=== PATIENT | female | born 1950 | race Caucasian/White ===

== ENCOUNTER 2017-11-02 07:21 | Day surgery (SDC) | payer MEDICARE, MEDICAID ==
[~2017-11-02] VITALS: Ht 154.9 cm; Wt 59.0 kg
[~2017-11-02 07:21] MED LIST: AMLO5TAB13 PO; BACL10TA PO; BUSP5TAB51 PO; ESCI20TA PO; GABA300C10 PO; HYDR2TAB58 PO; LEVO25TA6 PO; MELO1TAB73 PO; MORP15TA PO; OLAN5TAB30 PO; ONDA4TAB5 PO; OXYB5TAB61 PO; TRAZ-184 PO
[2017-11-02] MEDS ORDERED: LIDOCAINE 2% (LOCAL ANESTH.) PF 5ml SDV ONE (07:29)
[2017-11-02] MEDS ORDERED: IODIXANOL 320MG/ML 100ML BTL IV ONE (07:29)
[2017-11-02] MEDS ORDERED: SODIUM CHL 0.9% 0 ML ONE (08:18)
[2017-11-02] MEDS ORDERED: MIDAZOLAM HCL 1MG/1ML-2 ML VIAL ONE (08:18)
[2017-11-02] MEDS ORDERED: fentaNYL CITRATE 100 MCG/2 ML VL ONE (08:18)
[2017-11-02] MEDS ORDERED: ANGIOMAX 250 MG VIAL IV ONE (08:18)
[2017-11-02] MEDS ORDERED: VERAPAMIL 2.5MG/ML INJ 2ML VIAL IV ONE (08:39)
[2017-11-02] MEDS ORDERED: NITROGLYCERIN 5MG/ML 10ML VIAL IV ONE (08:40)
[2017-11-02] MEDS ORDERED: EPINEPHrine HCL 1 MG/10 ML SYRG ONE (08:50)
[2017-11-02] MEDS ORDERED: ATROPINE SULF 1 MG/10ml SYR ONE (08:50)
[2017-11-02] MEDS ORDERED: LIDOCAINE 2%HCL (LOCAL ANESTH.) INJ 10ml MDV ONE (09:02)
[2017-11-02] MEDS ORDERED: ONDANSETRON HCL 4 MG/2 ML VIAL IV PRN (10:00)
[2017-11-02] MEDS ORDERED: HYDROcodone-ACET 5/325MG TAB PO PRN (10:00)
[2017-11-02] MEDS ORDERED: ACETAMINOPHEN 500 MG TAB PO PRN (10:00)
== END 2017-11-02 15:30 | disposition home or self-care (01) ==
LOC: CATH 07:21
PROVIDERS: ATTEND Internal Medicine
DX: I73.9 Peripheral vascular disease, unspecified (principal); I35.0 Nonrheumatic aortic (valve) stenosis; F41.9 Anxiety disorder, unspecified; R42 Dizziness and giddiness; F17.210 Nicotine dependence, cigarettes, uncomplicated; I10 Essential (primary) hypertension; Z79.82 Long term (current) use of aspirin; Z79.899 Other long term (current) drug therapy; Z88.1 Allergy status to other antibiotic agents; Z85.9 Personal history of malignant neoplasm, unspecified; Z83.3 Family history of diabetes mellitus
CPT/HCPCS: 75716; 93458; A6257; C1769; C1894; J1644; J2001; J2250; J3010; J3490; J7030; Q9967; 93460; 99152; 99153

== ENCOUNTER 2018-09-08 12:42 | Inpatient (IN) | payer MEDICARE, MEDICAID ==
[~2018-09-08] VITALS: Ht 154.9 cm; Wt 63.1 kg
[~2018-09-08 12:42] MED LIST changes: -AMLO5TAB13 PO; +AMLO5TAB15 PO; +ONDA-144 PO; -ONDA4TAB5 PO
[2018-09-08] MEDS ORDERED: SODIUM CHLORIDE 0.9% 1,000 ML IV ONE (12:59)
[2018-09-08 13:26] LABS: Basophils # (auto) 0 uL; Basophils % (auto) 0.3 % (0.0-2.0); Eosinophils # (auto) 0 uL; Hematocrit 40.5 % (36.0-46.0); Hemoglobin 13.5 g/dL (12.2-16.2); Lymphocytes # (auto) 0.5 uL; Lymphocytes % (auto) 4.5 % (10.0-50.0); Mean Corpuscular Hgb Conc. 33.3 g/dL (32.0-36.0); Mean Corpuscular Volume 90.3 fL (80.0-100.0); Monocytes # (auto) 0.5 uL; Monocytes % (auto) 4.5 % (0.0-12.0); Neutrophils # (auto) 10.3 uL; Neutrophils % (auto) 90.7 % (37.0-80.0); Platelet Count (auto) 83 10^3/uL (140-450); Red Blood Cells 4.49 10^6/uL (4.0-5.20); Red Cell Distribution Width 14.7 % (11.8-14.3); White Blood Cell 11.3 10^3/uL (4.4-10.8)
[2018-09-08 13:42] LABS: Albumin 4.1 g/dL (3.4-5.0); Anion Gap 12 (5-15); Blood Urea Nitrogen 29 mg/dL (7-18); Calcium 9.2 mg/dL (8.5-10.1); Carbon Dioxide 26 mmol/L (21-32); Chloride 107 mmol/L (98-107); Glucose 110 mg/dL (74-106); Potassium 3.1 mmol/L (3.5-5.1); Sodium 145 mmol/L (136-145)
[2018-09-08 13:43] LABS: Partial Thromboplastin Time 26.9 sec (23.64-32.05)
[2018-09-08 13:44] LABS: BUN/Creatinine Ratio 30.9; Blood Alcohol < 3.0 mg/dL (0-5); GFR African American 76 mL/min; GFR Non-African American 63 mL/min
[2018-09-08 13:49] LABS: Alanine Aminotransferase 135 U/L (13-56); Alkaline Phosphatase 77 U/L (45-117); Aspartate Aminotransferase 578 U/L (15-37); Bilirubin, Total 0.6 mg/dL (0.2-1.0); Total Protein 7.7 g/dL (6.4-8.2)
[2018-09-08] MEDS ORDERED: POTASSIUM EFFERVESENT TAB 25 MEQ PO ONE (17:15)
[2018-09-08] MEDS ORDERED: ENOXAPARIN SOD 80 MG/0.8ML SYRINGE SC ONE (17:15)
[2018-09-08 18:29] LABS: Urine Bacteria FEW /hpf (None Seen); Urine Blood 3+ /uL (Negative); Urine Mucus FEW (None Seen); Urine Specific Gravity 1.014 (1.001-1.035); Urine WBC 39 /hpf (0 - 5)
[2018-09-08] MEDS ORDERED: MORPHINE SULF INJ 2 MG/ML SYRINGE 1ML IV PRN (19:00)
[2018-09-08] MEDS ORDERED: traMADol HCL 50 MG TAB PO PRN (19:00)
[2018-09-08] MEDS ORDERED: TEMAZEPAM 15 MG CAP PO PRN (19:00)
[2018-09-08] MEDS ORDERED: LEVOFLOXACIN 500MG 100 ML IV ONE (19:00)
[2018-09-08] MEDS ORDERED: LACTULOSE 20Gm/30ML SOLN PO PRN (19:00)
[2018-09-08] MEDS ORDERED: LABETALOL HCL 5 MG/ML ML 20ML VIAL IV PRN (19:00)
[2018-09-08] MEDS ORDERED: NITROGLYCERIN 0.4 MG SL TAB SL PRN (19:00)
[2018-09-08] MEDS: SODIUM CHLORIDE 0.9% 1,000 ML IV SCH (19:51)
[2018-09-08] MEDS: ATORVASTATIN 20 MG TAB PO SCH (22:29)
[2018-09-09 06:33] LABS: Basophils # (auto) 0 uL; Basophils % (auto) 0.2 % (0.0-2.0); Eosinophils # (auto) 0 uL; Eosinophils % (auto) 0.1 % (0.0-7.0); Hematocrit 41.6 % (36.0-46.0); Hemoglobin 14.2 g/dL (12.2-16.2); Lymphocytes # (auto) 0.6 uL; Lymphocytes % (auto) 8.2 % (10.0-50.0); Mean Corpuscular Hgb Conc. 34.2 g/dL (32.0-36.0); Mean Corpuscular Volume 90.7 fL (80.0-100.0); Monocytes # (auto) 0.3 uL; Monocytes % (auto) 3.4 % (0.0-12.0); Neutrophils # (auto) 6.7 uL; Neutrophils % (auto) 88.1 % (37.0-80.0); Nucleated Red Blood Cells % 0.1 %; Red Blood Cells 4.58 10^6/uL (4.0-5.20); Red Cell Distribution Width 14.4 % (11.8-14.3); White Blood Cell 7.6 10^3/uL (4.4-10.8)
[2018-09-09 06:39] LABS: Platelet Count (auto) 67 10^3/uL (140-450)
[2018-09-09 06:47] LABS: Albumin 3.8 g/dL (3.4-5.0); Calcium 8.6 mg/dL (8.5-10.1)
[2018-09-09 06:50] LABS: BUN/Creatinine Ratio 22.8; Bilirubin, Total 0.8 mg/dL (0.2-1.0); Total Protein 7.7 g/dL (6.4-8.2)
[2018-09-09] MEDS: SODIUM CHLORIDE 0.9% 1,000 ML IV SCH ×3 (07:15→21:16)
[2018-09-09] MEDS: PANTOPRAZOLE 40 MG TAB PO SCH (10:00)
[2018-09-09] MEDS: ENOXAPARIN SOD 40 MG/0.4 ML SYRINGE SC SCH (10:00)
[2018-09-09] MEDS: ASPirin 81 mg TAB PO SCH (10:00)
[2018-09-09] MEDS: LEVOFLOXACIN 500MG 100 ML IV SCH (10:22)
[2018-09-09] MEDS ORDERED: SODIUM CHLORIDE 0.9% 2,000 ML IV ONE (13:30)
--- NOTE | 2018-09-09 15:12 | NUR ---
Telemetry admit from ER ANNA BARRAZA admitted to Telemetry unit after SBAR received from Carlo. Spoke with Carlo regarding patient's potassium and d-dimer levels, per MD Carlo is not aware. Patient oriented to Antonette Patterson RN primary RN, unit, room, bed, and unit policies regarding patient care and visiting hours. Patient now on continuous telemetry monitoring, tele box #14 and telemetry reading on arrival to unit is Sinus Rhythm 88. Patient weighed by bed scale and encouraged to call if they need something. All questions and concerns addressed, patient verbalized understanding.
--- NOTE | 2018-09-09 15:15 | NUR ---
SPOKE WITH MD GAVIN. INFORMED MD OF PATIENT'S POTASSIUM AND D-DIMER LEVELS. MD IS AWARE AND ORDERED POTASSIUM TO BE GIVEN, CAROTID US AND BILATERAL LOWER EXTREMITY US. WILL FOLLOW THROUGH WITH ORDERS.
[2018-09-09] MEDS ORDERED: POTASSIUM CHL 20 Meq TABLET PO ONE (15:45)
[2018-09-09 15:56] VITALS: BP 144/75
[2018-09-09] MEDS ORDERED: POTASSIUM EFFERVESENT TAB 25 MEQ PO ONE ×3 (16:00→18:45)
--- NOTE | 2018-09-09 16:30 | NUR ---
VERIFYING SPECIALIST AT BEDSIDE. BILATERAL LOWER EXTREMITY US BEING DONE AT THIS TIME.
[2018-09-09] MEDS: PROMETHAZINE HCL 25 MG/ML 1ML IV PRN ×2 (16:34→21:38)
[2018-09-09 17:00] VITALS: BP 144/75
--- NOTE | 2018-09-09 18:21 | NUR ---
PATIENT HAS HAD 400 ML OF ORANGE EMESIS. PAGED ELECTRODE TURNER AND FINISHER HOSPITALIST. AWAITING CALL BACK
[2018-09-09] MEDS ORDERED: PROMETHAZINE HCL 25 MG/ML 1ML IV ONE (18:45)
--- NOTE | 2018-09-09 18:45 | NUR ---
MD GLYNN CALLED BACK. INFORMED HIM PATIENT HAS HAD 400 ML OF ORANGE EMESIS AFTER PROMETHAZINE WAS GIVEN. MD ORDER K RIDER, POTASSIUM PO, POTASSIUM IV AND NS WITH POTASSIUM TO BE GIVEN. WILL FOLLOW THROUGH WITH ORDERS.
[2018-09-09] MEDS: POTASSIUM CHL 20MEQ/100ML 100 ML IV SCH ×3 (18:53→21:24)
--- NOTE | 2018-09-09 19:18 | NUR ---
CLOSING SHIFT NOTE ENDORSED CARE TO PICTURE HANGER RN DONA. INFORMED PICTURE HANGER RN, FIRST K RIDER BAG IS RUNNING AT THIS TIME WELL PROMETHAZINE. 2 K RIDER BAGS REMAINING AND NS WITH POTASSIUM. PATIENT HAS NO S/S OF DISTRESS/SOB OR PAIN AT THIS TIME.
--- NOTE | 2018-09-09 19:33 | NUR ---
received pt from day rn poc reviewed
[2018-09-09] MEDS: SOD CHL 0.9%/ KCL 40MEQ 1,000 ML IV SCH (21:16)
[2018-09-09] MEDS: ATORVASTATIN 20 MG TAB PO SCH (21:22)
[2018-09-09 22:03] VITALS: BP 149/80
--- NOTE | 2018-09-09 23:38 | NUR ---
incontinent of stool, pt has periods of confusion stated that she is incontinent because of all the meds she takes
--- NOTE | 2018-09-10 00:25 | NUR ---
resting with eyes closed call light within reach bed alarm intact
[2018-09-10] MEDS: SODIUM CHLORIDE 0.9% 1,000 ML IV SCH ×4 (02:50→22:22)
--- NOTE | 2018-09-10 03:55 | NUR ---
pt had 3rd liquid stool within past 12 hours will send specimen for cdiff charge nurse aware
[2018-09-10 04:05] VITALS: BP 160/81
[2018-09-10] MEDS: SOD CHL 0.9%/ KCL 40MEQ 1,000 ML IV SCH ×2 (05:49→14:45)
[2018-09-10 06:18] LABS: Basophils # (auto) 0 uL; Basophils % (auto) 0.2 % (0.0-2.0); Eosinophils # (auto) 0 uL; Hematocrit 41.7 % (36.0-46.0); Hemoglobin 14.4 g/dL (12.2-16.2); Lymphocytes # (auto) 0.5 uL; Lymphocytes % (auto) 4.3 % (10.0-50.0); Mean Corpuscular Hgb Conc. 34.5 g/dL (32.0-36.0); Mean Corpuscular Volume 89.8 fL (80.0-100.0); Monocytes # (auto) 0.5 uL; Monocytes % (auto) 4.2 % (0.0-12.0); Neutrophils # (auto) 10.2 uL; Neutrophils % (auto) 91.3 % (37.0-80.0); Platelet Count (auto) 92 10^3/uL (140-450); Red Blood Cells 4.65 10^6/uL (4.0-5.20); Red Cell Distribution Width 14.3 % (11.8-14.3); White Blood Cell 11.1 10^3/uL (4.4-10.8)
[2018-09-10 06:43] LABS: Potassium 3.3 mmol/L (3.5-5.1)
--- NOTE | 2018-09-10 06:52 | NUR ---
REPORT GIVEN TO AM NURSE POC REVIEWED
[2018-09-10 07:01] LABS: Albumin 3.5 g/dL (3.4-5.0); Bilirubin, Total 0.8 mg/dL (0.2-1.0); Calcium 8.5 mg/dL (8.5-10.1); Total Protein 7.2 g/dL (6.4-8.2)
--- NOTE | 2018-09-10 07:30 | NUR ---
Opening Shift Note RECEIVED REPORT FROM NOC RN. Assumed care of patient, awake and alert. No S/S of distress/SOB or pain. BED IN LOWEST, LOCKED POSITION WITH SIDERAILS UP x2. Instructed on POC and to call for assist PRN, will continue to monitor for changes Q1hr and PRN.
[2018-09-10 08:10] VITALS: BP 157/89
[2018-09-10 09:00] VITALS: BP 157/89
[2018-09-10] MEDS: ASPirin 81 mg TAB PO SCH (09:58)
[2018-09-10] MEDS: ENOXAPARIN SOD 40 MG/0.4 ML SYRINGE SC SCH (09:58)
[2018-09-10] MEDS: LEVOFLOXACIN 500MG 100 ML IV SCH (09:58)
[2018-09-10] MEDS: PANTOPRAZOLE 40 MG TAB PO SCH (09:58)
[2018-09-10 13:00] VITALS: BP 127/97
[2018-09-10 17:00] VITALS: BP 151/85
--- NOTE | 2018-09-10 19:00 | NUR ---
Opening Shift Note Assumed care of patient, awake and alert. No S/S of distress/SOB or pain. Instructed on POC and to call for assist PRN, will continue to monitor for changes Q1hr and PRN.
[2018-09-10 21:00] VITALS: BP 151/86
[2018-09-10] MEDS: ATORVASTATIN 20 MG TAB PO SCH (21:39)
[2018-09-10] MEDS: ACETAMINOPHEN 500 MG TAB PO PRN (23:02)
[2018-09-11] MEDS: SOD CHL 0.9%/ KCL 40MEQ 1,000 ML IV SCH ×3 (00:45→20:49)
[2018-09-11 04:30] VITALS: BP 137/76
[2018-09-11] MEDS: SODIUM CHLORIDE 0.9% 1,000 ML IV SCH ×3 (05:43→18:50)
[2018-09-11 06:58] LABS: Basophils # (auto) 0 uL; Basophils % (auto) 0.1 % (0.0-2.0); Eosinophils # (auto) 0 uL; Hematocrit 44.1 % (36.0-46.0); Mean Corpuscular Hemoglobin 30.2 pg (28.0-32.0); Mean Corpuscular Hgb Conc. 33.9 g/dL (32.0-36.0); Mean Corpuscular Volume 88.8 fL (80.0-100.0); Neutrophils % (auto) 85.9 % (37.0-80.0); Nucleated Red Blood Cells % 0.1 %; Platelet Count (auto) 119 10^3/uL (140-450); Red Blood Cells 4.97 10^6/uL (4.0-5.20); Red Cell Distribution Width 14.4 % (11.8-14.3); White Blood Cell 13.9 10^3/uL (4.4-10.8)
[2018-09-11 07:16] LABS: Albumin 3.3 g/dL (3.4-5.0); Calcium 8.3 mg/dL (8.5-10.1)
[2018-09-11 07:32] LABS: BUN/Creatinine Ratio 33.9; Bilirubin, Total 0.6 mg/dL (0.2-1.0); Total Protein 6.5 g/dL (6.4-8.2)
[2018-09-11 07:34] LABS: Potassium 2.7 mmol/L (3.5-5.1)
--- NOTE | 2018-09-11 07:40 | NUR ---
CRITICAL LAB POTASSIUM 2.7
--- NOTE | 2018-09-11 07:45 | NUR ---
PAGED HOSPITALIST MARY DOWELL.
--- NOTE | 2018-09-11 07:57 | NUR ---
HOSPITALIST DELMER RETURNED PAGE. NEW ORDERS RECEIVED POTASSIUM 40 MEQ IV. POTASSIUM 40 MEQ PO.
[2018-09-11 08:00] VITALS: BP 154/90
[2018-09-11 08:15] VITALS: BP 154/90
[2018-09-11] MEDS ORDERED: POTASSIUM CHL 20 Meq TABLET PO ONE (08:15)
[2018-09-11] MEDS ORDERED: POTASSIUM CHLORIDE 40 MEQ, LIDOCAINE 1% (LOCAL ANESTH.) 4 ML in SODIUM CHL 0.9% 100 ML IV ONE (08:15)
[2018-09-11] MEDS ORDERED: LOPERAMIDE HCL 2 MG CAP PO ONE (08:45)
[2018-09-11] MEDS ORDERED: LOPERAMIDE HCL 2 MG CAP PO PRN (08:45)
[2018-09-11] MEDS: LEVOFLOXACIN 500MG 100 ML IV SCH (09:39)
[2018-09-11] MEDS: ASPirin 81 mg TAB PO SCH (09:39)
[2018-09-11] MEDS: PANTOPRAZOLE 40 MG TAB PO SCH (09:39)
[2018-09-11] MEDS: ENOXAPARIN SOD 40 MG/0.4 ML SYRINGE SC SCH (09:39)
[2018-09-11 12:00] VITALS: BP 148/92
[2018-09-11 17:00] VITALS: BP 157/91
[2018-09-11] MEDS: POTASSIUM CHL 20 Meq TABLET PO SCH (18:12)
[2018-09-11] MEDS: ATORVASTATIN 20 MG TAB PO SCH (21:38)
[2018-09-11 22:33] VITALS: BP 145/89
[2018-09-12] MEDS: SODIUM CHLORIDE 0.9% 1,000 ML IV SCH ×2 (01:28→07:37)
[2018-09-12 05:29] VITALS: BP 160/98
[2018-09-12] MEDS: SOD CHL 0.9%/ KCL 40MEQ 1,000 ML IV SCH ×2 (06:29→17:41)
[2018-09-12 07:19] LABS: Basophils # (auto) 0 uL; Basophils % (auto) 0.2 % (0.0-2.0); Eosinophils # (auto) 0.1 uL; Eosinophils % (auto) 0.5 % (0.0-7.0); Hematocrit 42.9 % (36.0-46.0); Hemoglobin 14.6 g/dL (12.2-16.2); Lymphocytes # (auto) 1.2 uL; Lymphocytes % (auto) 10.4 % (10.0-50.0); Mean Corpuscular Hemoglobin 30.7 pg (28.0-32.0); Mean Corpuscular Volume 90.4 fL (80.0-100.0); Monocytes # (auto) 0.8 uL; Monocytes % (auto) 7.4 % (0.0-12.0); Neutrophils # (auto) 9.2 uL; Neutrophils % (auto) 81.5 % (37.0-80.0); Platelet Count (auto) 105 10^3/uL (140-450); Red Blood Cells 4.75 10^6/uL (4.0-5.20); Red Cell Distribution Width 14.4 % (11.8-14.3); White Blood Cell 11.3 10^3/uL (4.4-10.8)
[2018-09-12 07:20] LABS: Potassium 3.8 mmol/L (3.5-5.1)
--- NOTE | 2018-09-12 07:35 | NUR ---
PATIENT ROUNDS/ISOLATION RECEIVED CALL FROM MICRO, PATIENT POSITIVE FOR C. DIFF. SHROUD LINE TIER AWARE, WILL URSULA SANTORO. PATIENT MOVED FROM ROOM 246A TO 237. PATIENT IN BED, NO DISTRESS NOTED, BED IN LOWEST POSITION, SIDE RAILS UP X2 CALL LIGHT WITHIN REACH. WILL CONTINUE TO MONITOR AND INITIATE PLAN OF CARE.
[2018-09-12 07:38] LABS: Albumin 3.4 g/dL (3.4-5.0); BUN/Creatinine Ratio 23.5; Bilirubin, Total 0.9 mg/dL (0.2-1.0); Calcium 8.5 mg/dL (8.5-10.1); Total Protein 6.7 g/dL (6.4-8.2)
--- NOTE | 2018-09-12 08:18 | NUR ---
MD UPDATE CALLED AND INFORMED DR GAVIN ON POSITIVE C-DIFF AND ROOM CHANGE.
[2018-09-12] MEDS ORDERED: VANCOMYCIN HCL 500MG/5ML ORAL SOL GT ONE (09:00)
[2018-09-12] MEDS ORDERED: metroNIDAZOLE 500MG/100ML 100 ML IV ONE (09:00)
[2018-09-12 09:16] VITALS: BP 159/90
[2018-09-12] MEDS: PANTOPRAZOLE 40 MG TAB PO SCH (10:00)
--- NOTE | 2018-09-12 10:00 | NUR ---
POC KEISHA Tidwell ASSISTING IN POC.
[2018-09-12] MEDS: ASPirin 81 mg TAB PO SCH (10:14)
[2018-09-12] MEDS: POTASSIUM CHL 20 Meq TABLET PO SCH (10:15)
[2018-09-12] MEDS: ENOXAPARIN SOD 40 MG/0.4 ML SYRINGE SC SCH (10:15)
[2018-09-12] MEDS: LEVOFLOXACIN 500MG 100 ML IV SCH (10:16)
[2018-09-12 10:40] LABS: Hepatitis B Surface Antibody Positive
[2018-09-12 11:17] LABS: Hepatitis A Total Antibody Positive
[2018-09-12] MEDS: VANCOMYCIN HCL 500MG/5ML ORAL SOL GT SCH ×3 (11:47→21:57)
[2018-09-12 13:01] VITALS: BP 150/94
[2018-09-12] MEDS: metroNIDAZOLE 500MG/100ML 100 ML IV SCH ×2 (14:14→21:58)
[2018-09-12 17:08] VITALS: BP 140/93
[2018-09-12 17:15] LABS: Hepatitis B Core Total AB Positive; Hepatitis B Surface Antigen Negative (Negative)
[2018-09-12 17:16] LABS: Hepatitis C Antibody Positive (Negative)
--- NOTE | 2018-09-12 18:51 | NUR ---
picture on dried skin tear on right elbow taken. psyche consult order called in, spoke to Law. Tele psyche monitor in pt room.
--- NOTE | 2018-09-12 19:45 | NUR ---
TELE PSYCHE: PSYCHIATRIST MD CALLED AND INQUIRED RE; PT'S STATUS AND REASON FOR CONSULT.PERTINENT INFO WAS GIVEN, PER MD WILL CALL PT IN THE ROOM. TELE PSYCHE MACHINE IS AVAILABLE TO BE USED IN THE ROOM.
--- NOTE | 2018-09-12 19:55 | NUR ---
PT SEEN IN BED SPEAKING WITH THE TELE PSYCHE .
[2018-09-12 20:00] VITALS: BP 157/92
--- NOTE | 2018-09-12 20:10 | NUR ---
TELE PSYCHE CALLED AND WAS INSTRUCTED TO GO INSIDE PT'S ROOM. WENT IN TO SEE PT SPEAKING WITH THE PSYCHIATRIST, PER PT DENIES STATING SHE OD WITH MEDICATION. PER , PT DOES NOT MANIFEST DANGER ON HERSELF BUT NOTED TO HAVE RELAPSE MEMORIES. UNABLE TO REMEMBER 'S NATURE OF BUT REMEMBERS OF HIM PASSING. UNABLE TO REMEMBER ABOUT HER CAREGIVER. INFORM MD WILL NOTIFY ATTENDING PHYSICIAN RE: THIS INFORMATION.
[2018-09-12 21:46] VITALS: BP 157/92
[2018-09-12] MEDS: METOPROLOL TARTRATE 25 MG TAB PO SCH (21:58)
[2018-09-12] MEDS: ATORVASTATIN 20 MG TAB PO SCH (21:59)
[2018-09-13] VITALS (7 sets, daily range): BP systolic 148–166; BP diastolic 88–99
[2018-09-13] MEDS: SOD CHL 0.9%/ KCL 40MEQ 1,000 ML IV SCH ×3 (03:47→22:45)
[2018-09-13] MEDS: VANCOMYCIN HCL 500MG/5ML ORAL SOL GT SCH ×4 (05:16→22:53)
[2018-09-13] MEDS: metroNIDAZOLE 500MG/100ML 100 ML IV SCH ×3 (05:16→22:53)
--- NOTE | 2018-09-13 07:45 | NUR ---
Opening Shift Note Assumed care of patient, awake, alert and oriented x4 . Patient is forgetful otherwise oriented. Bed at lowest locked position, bed rails up x2 and call light within reach. No S/S of distress/SOB or pain. Instructed on POC and to call for assistance PRN, will continue to monitor for changes Q1hr and PRN.
--- NOTE | 2018-09-13 10:00 | NUR ---
Patient had a BM. Patient was soiled. Cleansed suraj/buttocks with wet warm wash cloths and gentle soap. Patted dry and applied Zguard to suraj/buttocks area. Suraj/buttocks area is red no c/o pain/tenderness. Complete linen change with help of ROUND UP RING HAND. Will continue to monitor.
[2018-09-13] MEDS: LEVOFLOXACIN 500MG 100 ML IV SCH (12:40)
[2018-09-13] MEDS: METOPROLOL TARTRATE 25 MG TAB PO SCH ×2 (12:40→22:51)
[2018-09-13] MEDS: ASPirin 81 mg TAB PO SCH (12:40)
[2018-09-13] MEDS: POTASSIUM CHL 20 Meq TABLET PO SCH (12:40)
[2018-09-13] MEDS: PANTOPRAZOLE 40 MG TAB PO SCH (12:41)
[2018-09-13] MEDS: ENOXAPARIN SOD 40 MG/0.4 ML SYRINGE SC SCH (12:41)
--- NOTE | 2018-09-13 12:54 | NUR ---
Nutrition Assessment Notes please see attached link for complete assessment Est. Needs BW (66 kg): 7010-3678 kcal (23-25 kcal/kgBW), 66-72 gms pro (1.0-1.1 gms/kgBW). Will continue to monitor pertinent labs and reassess nutrient need prn Addendum: 09/13/18 at [address] Amended: Links added.
--- NOTE | 2018-09-13 16:37 | NUR ---
Per consult received, patient has an order for SNF placement. Faxed referral to the following agencies: [facility], [facility], and [facility]. [facility], and [facility] does not have any isolation beds available at this time. [facility] has agreed to accept patient upon discharge. [facility] notified [facility]. Addendum: 09/13/18 at 1640 by RENEA VALADEZ SS Amended: Links added. Addendum: 09/13/18 at 1641 by RENEA VALADEZ SS Per Lakeshia at [facility], they have agreed to accept the patient.
--- NOTE | 2018-09-13 19:15 | NUR ---
Opening Shift Note Received report from jhony Harris RN. Assumed care of patient, awake and alert, but forgetful and confused at times. No S/S of distress/SOB or pain. Instructed on POC and to call for assist PRN, will continue to monitor for changes Q1hr and PRN. Bed placed in lowest position, bed alarm turned on and call light within reach.
--- NOTE | 2018-09-13 21:15 | NUR ---
ROUNDS Patient was making some gurgling noise, oxygen check is 90% room air, noted with a lot of wheezing and slight crackles. Advise patient to cough up, deep breathe and spit some saliva. Placed patient on 2LNC, saturating at 95 %. RT paged and in the room. Patient feeling better. Position patient in a fowlers, patient states feeling better. Will monitor closely.
--- NOTE | 2018-09-13 21:35 | NUR ---
Dr Gatica , Neurologist, came in the room, and ordered Lasix 20mg IV once for wheezing and slight crackles. Order noted.
--- NOTE | 2018-09-13 21:37 | NUR ---
PAGED TO BEDSIDE FOR ASSESSMENT. RN AT BEDSIDE. PT APPEARS DIAPHORETIC BUT WAS ABLE TO ANSWER QUESTIONS APPROPRIATELY. RN PLACED PT ON 3L NC POX 98% HR 92 RR 18. BS ARE ARE COARSE CRACKLES BILATERALLY. SUGGESTED TO RN THAT PT MAY BENEFIT FROM LASIX. RT TOLD RN THAT IF PT HAS ANY OTHER STATUS CHANGE THAT RT WILL COME REASSESS AT THAT TIME.
[2018-09-13] MEDS ORDERED: FUROSEMIDE 20 MG/2 ML VIAL IV ONE (22:00)
[2018-09-13] MEDS: ATORVASTATIN 20 MG TAB PO SCH (22:52)
[2018-09-13] MEDS: ACETAMINOPHEN 500 MG TAB PO PRN (22:52)
[2018-09-14] MEDS: VANCOMYCIN HCL 500MG/5ML ORAL SOL GT SCH ×3 (05:40→18:00)
[2018-09-14] MEDS: metroNIDAZOLE 500MG/100ML 100 ML IV SCH ×2 (05:41→14:00)
[2018-09-14 05:56] VITALS: BP 134/93
[2018-09-14 08:00] VITALS: BP 140/53
[2018-09-14] MEDS: SOD CHL 0.9%/ KCL 40MEQ 1,000 ML IV SCH (08:45)
[2018-09-14 09:00] VITALS: BP 140/93
[2018-09-14 09:04] LABS: Folate (Folic Acid) 22.16 ng/mL (5.38-24)
[2018-09-14] MEDS ORDERED: busPIRone HCL 10 MG TAB PO SCH (10:00)
[2018-09-14] MEDS ORDERED: CITALOPRAM HYDROBR 20 MG TAB PO SCH (10:00)
[2018-09-14] MEDS ORDERED: MELOXICAM PO SCH (10:00)
--- NOTE | 2018-09-14 10:00 | NUR ---
EEG Spoke to Marion in the laboratory technician, she states that EEG will be done later today by a tech. SANTORO aware
--- NOTE | 2018-09-14 12:07 | NUR ---
Per consult received, patient has an order for SNF placement. Faxed referral, placed a follow up call, and per Lakeshia Luna accepted patient. She will be going to room 53 bed A. Vic Luna will provide transportation and medicinal plant picker is at 4:30pm. Dr. Stanley is the accepting doctor per Lakeshia. Nurse Harris, the attending in-patient nurse was notified. Addendum: 09/14/18 at 1211 by RENEA VALADEZ Amended: Links added.
[2018-09-14] MEDS: LEVOFLOXACIN 500MG 100 ML IV SCH (12:17)
[2018-09-14] MEDS: ASPirin 81 mg TAB PO SCH (12:17)
[2018-09-14] MEDS: POTASSIUM CHL 20 Meq TABLET PO SCH (12:18)
[2018-09-14] MEDS: METOPROLOL TARTRATE 25 MG TAB PO SCH (12:19)
[2018-09-14] MEDS: PANTOPRAZOLE 40 MG TAB PO SCH (12:19)
[2018-09-14] MEDS: ENOXAPARIN SOD 40 MG/0.4 ML SYRINGE SC SCH (12:20)
[2018-09-14 13:00] VITALS: BP 132/89
--- NOTE | 2018-09-14 15:23 | NUR ---
Paged Dr. Gatica regarding order for EEG. Awaiting call back.
--- NOTE | 2018-09-14 15:43 | NUR ---
stress test technician has not done the EEG on patient. Notified Dr. Pang. Addendum: 09/14/18 at 1546 by Ginny Yap RN Received orders to cancel EEG from MD Hossein Pang. Orders read back and verified.
--- NOTE | 2018-09-14 15:55 | NUR ---
CALLED BARNEY HERNANDEZ TO GIVE REPORT ON PATIENT. Addendum: 09/14/18 at 1601 by Ginny Yap RN GAVE REPORT TO DIEGO VALDES.
[2018-09-14 16:03] VITALS: BP 132/89
--- NOTE | 2018-09-14 17:19 | NUR ---
Discharge instructions given as ordered. All questions and concerns addressed. Patient verbalized understanding. Medication reconciliation form completed and copy given to patient. Telemetry unit returned to ICU. Report given to Shantal RN at 15:55. Patient transported by non ambulance transportation in a wheelchair with all personal belongings. No distress noted at time of departure.
--- NOTE | 2018-09-14 17:41 | NUR ---
assessment Patient is a 67 year old female who is alert and oriented. Prior to admission patient lived home alone and function with the help of her caregiver Maisha [phone]. Patients PCP is Dr Johnson. Patient has a fww for home use. I informed patient she has a consult for her living situation and that she fell at home. Patient informed me she did fall at home and she was the one who called 911. Patient also informed me she will return home on discharge with her caregiver. I have offered patient rehab and she refused. Patient informed me she feels safe returning home on discharge. Patient will benefit from [facility] for safety and PT. Patient verbalized understanding and agreed to discharge plan home. Addendum: 09/14/18 at 1746 by Charlotte MANSFIELD Amended: Links added.
--- NOTE | 2018-09-14 17:58 | NUR ---
CALLED PATIENTS SON TO NOTIFY OF TRANSFER TO [facility], NO ANSWER. LEFT MESSAGE. KARTIK MEJIA [phone] Addendum: 09/14/18 at 1800 by Ginny Yap RN *TIME CALLED 1600
[2018-09-14] MEDS ORDERED: OLANZapine 5 MG TAB PO SCH (22:00)
--- NOTE | 2018-09-16 11:41 | NUR ---
BLUE PURSE BELONGING TO PT LOCATED ON [place]. MESSAGE LEFT WITH SON JACKIE AT [phone] TO CALL MEAT STOCKER
--- NOTE | 2018-09-16 12:59 | NUR ---
I REC'D CALL FROM SON JACKIE. HE GAVE ME PERMISSION TO GIVE BELONGINGS TO NIK. HE STATES HE NEVER WAS NOTIFIED OF HER DISCHARGE TO Addendum: 09/16/18 at 1351 by Janet Padron RN BARNEY HERNANDEZ BUT HAS SPOKEN TO THEM SINCE DISCHARGE ON 09/14. HE RELATES HX OF HEAVY NARCOTIC USE BY HIS MOTHER CAREGIVER IS NIK AT [phone]. MESSAGE LEFT FOR HER AT 1300
--- NOTE | 2018-09-16 13:10 | NUR ---
MESSAGE LEFT WITH NIK AT [phone] TO CALL COPYRIGHT EXPERT
== END 2018-09-14 17:20 | DRG 871 ==
LOC: ER 12:42 → EDBD 12:42 → TELE 12:43 → TELE-EAST 09-09 15:21
PROVIDERS: ADMIT Internal Medicine; ATTEND Family Medicine
DX: A41.9 Sepsis, unspecified organism (principal); G93.41 Metabolic encephalopathy; I21.A1 Myocardial infarction type 2; N39.0 Urinary tract infection, site not specified; M62.82 Rhabdomyolysis; I50.32 Chronic diastolic (congestive) heart failure; A04.72 Enterocolitis due to Clostridium difficile, not specified as recurrent; B19.10 Unspecified viral hepatitis B without hepatic coma; T50.901A Poisoning by unspecified drugs, medicaments and biological substances, accidental (unintentional), initial encounter; D69.6 Thrombocytopenia, unspecified; I11.0 Hypertensive heart disease with heart failure; I73.9 Peripheral vascular disease, unspecified; I70.90 Unspecified atherosclerosis; J44.9 Chronic obstructive pulmonary disease, unspecified; K21.9 Gastro-esophageal reflux disease without esophagitis; E87.6 Hypokalemia; G62.9 Polyneuropathy, unspecified; B19.20 Unspecified viral hepatitis C without hepatic coma; F41.9 Anxiety disorder, unspecified; E03.9 Hypothyroidism, unspecified; G47.00 Insomnia, unspecified; K74.60 Unspecified cirrhosis of liver; B96.20 Unspecified Escherichia coli [E. coli] as the cause of diseases classified elsewhere; F32.9 Major depressive disorder, single episode, unspecified; Z60.2 Problems related to living alone; Z88.1 Allergy status to other antibiotic agents; Z90.710 Acquired absence of both cervix and uterus; Y92.89 Other specified places as the place of occurrence of the external cause; Z79.899 Other long term (current) drug therapy
CPT/HCPCS: 36415; 70450; 71045; 76705; 80053; 80320; 81001; 82140; 82550; 82607; 82746; 82962; 83605; 83880; 84443; 84484; 85025; 85379; 85610; 85730; 86704; 86706; 86708; 86803; 87040; 87086; 87088; 87186; 87340; 87493; 93005; 93886; 93970; 96361; 96365; 96372; 96375; G0378; J1956; J2001; J3480; J3490

== ENCOUNTER 2019-11-17 15:29 | Inpatient (IN) | payer MEDICARE, MEDICAID ==
[~2019-11-17] VITALS: Ht 167.6 cm; Wt 71.1 kg
[~2019-11-17 15:29] MED LIST changes: +CETI-120 PO; +DILT60TA27 PO; +DIPH2.5T73 PO; +FURO40TA4 PO; +LEV25T PO; +NITR0.4S29 SL; +OLAN1TAB19 PO; +OLAN1TAB7 PO; -OLAN5TAB30 PO; +PARO1TAB33 PO; +POTA10TA51 PO; +TEMA15CA91 PO; +TRAM50TA2 PO
[2019-11-17] MEDS ORDERED: SODIUM CHLORIDE 0.9% 500 ML IVB ONE (15:45)
[2019-11-17 17:12] LABS: Basophils # (auto) 0 10 ^3/uL (0-0.2); Basophils % (auto) 0.1 % (0.0-2.0); Eosinophils # (auto) 0 10 ^3/uL (0-0.8); Eosinophils % (auto) 0.4 % (0.0-7.0); Hematocrit 37.3 % (36.0-46.0); Hemoglobin 12.4 g/dL (12.2-16.2); Lymphocytes # (auto) 0.8 10 ^3/uL (0.4-5.4); Lymphocytes % (auto) 13.7 % (10.0-50.0); Mean Corpuscular Hgb Conc. 33.2 g/dL (32.0-36.0); Mean Corpuscular Volume 87.4 fL (80.0-100.0); Monocytes # (auto) 0.6 10 ^3/uL (0-1.3); Monocytes % (auto) 10.1 % (0.0-12.0); Neutrophils # (auto) 4.5 10 ^3/uL (1.6-8.6); Neutrophils % (auto) 75.7 % (37.0-80.0); Platelet Count (auto) 165 10^3/uL (140-450); Red Blood Cells 4.26 10^6/uL (4.0-5.20); Red Cell Distribution Width 15.8 % (11.8-14.3); White Blood Cell 5.9 10^3/uL (4.4-10.8)
[2019-11-17 17:30] LABS: INR 0.99 (0.9-1.15); Partial Thromboplastin Time 24.7 sec (23.0-31.2)
[2019-11-17 17:37] LABS: Albumin 3.3 g/dL (3.4-5.0); Anion Gap 8 (5-15); Blood Urea Nitrogen 8 mg/dL (7-18); Calcium 8.7 mg/dL (8.5-10.1); Carbon Dioxide 28 mmol/L (21-32); Chloride 108 mmol/L (98-107); Glucose 96 mg/dL (74-106); Magnesium 2.5 mg/dL (1.6-2.6); Sodium 144 mmol/L (136-145)
[2019-11-17 17:41] LABS: Alanine Aminotransferase 29 U/L (13-56); Alkaline Phosphatase 95 U/L (45-117); Aspartate Aminotransferase 19 U/L (15-37); BUN/Creatinine Ratio 12.1; Bilirubin, Total 0.4 mg/dL (0.2-1.0); GFR African American 114 mL/min; GFR Non-African American 94 mL/min; Total Protein 6.7 g/dL (6.4-8.2)
[2019-11-17 17:54] LABS: Potassium 2.5 mmol/L (3.5-5.1)
[2019-11-17] MEDS ORDERED: LORazepam 2MG/ML-1ML VIAL IV ONE (18:00)
[2019-11-17] MEDS: POTASSIUM CHL 20MEQ/100ML 100 ML IV SCH ×3 (18:15→20:50)
[2019-11-17] MEDS ORDERED: NITROGLYCERIN 0.4 MG SL TAB SL PRN (18:30)
[2019-11-17] MEDS ORDERED: ALBUTEROL SULF 2.5 MG/0.5ML(0.5%) NEB SOLN NEB PRN (18:30)
[2019-11-17] MEDS ORDERED: hydrALAZINE HCL 20 MG/ML VL IV PRN (18:30)
[2019-11-17] MEDS ORDERED: MORPHINE SULF INJ 2 MG/ML SYRINGE 1ML IV PRN (18:30)
[2019-11-17] MEDS: D5W/SOD CHLO 0.9% 1,000 ML IV SCH (19:27)
--- NOTE | 2019-11-17 19:40 | NUR ---
Telemetry admit from ER MADIANNA admitted to Telemetry arrived at 1940 via bed. Patient oriented to GERARDO MCCORMICK, RN primary RN, unit, room, bed, and unit policies regarding patient care and visiting hours. Patient responds to name by opening eyes non verbal at this time. Patient now on continuous telemetry monitoring, tele box #53 and telemetry reading on arrival to unit is Afib 66. Patient weighed by bed scale and vitals taken at this time. Safety measures in place bed in lowest position, side rails up x2 and call light with in reach. will continue to monitor for changes Q1hr and PRN.
--- NOTE | 2019-11-17 21:20 | NUR ---
PATIENT ALTERED. UNABLE TO CONFIRM LIST OF MEDICATIONS OR PHARMACY. INFORMATION PULLED FROM CHART AND UPDATED. MOVEMAN RN INFORMED.
[2019-11-17 22:00] VITALS: BP 130/83
[2019-11-17] MEDS: BUDESONIDE (INHALATION) 0.5 MG/2 ML NEB NEB SCH (22:20)
[2019-11-17 22:53] VITALS: BP 106/77
--- NOTE | 2019-11-17 23:45 | NUR ---
Transferred patient to central via bed. Gave report and endorsed care to RN on central.
--- NOTE | 2019-11-17 23:50 | NUR ---
Transfer from [place] Assumed care of patient, patient was coming in and out of consciousness, non verbal, moving around in bed, trying to get out of bed. No S/S of distress/SOB or pain. Instructed on POC and to call for assist PRN, will continue to monitor for changes sitter in the room for safety.
[2019-11-18] MEDS: LORazepam 2MG/ML-1ML VIAL IV PRN ×3 (00:53→10:49)
[2019-11-18 05:00] VITALS: BP 122/92
[2019-11-18 05:59] LABS: Basophils # (auto) 0.1 10 ^3/uL (0-0.2); Basophils % (auto) 1.1 % (0.0-2.0); Eosinophils # (auto) 0.1 10 ^3/uL (0-0.8); Eosinophils % (auto) 1.8 % (0.0-7.0); Hematocrit 41.8 % (36.0-46.0); Hemoglobin 13.9 g/dL (12.2-16.2); Lymphocytes # (auto) 1.3 10 ^3/uL (0.4-5.4); Lymphocytes % (auto) 26.7 % (10.0-50.0); Mean Corpuscular Hemoglobin 28.9 pg (28.0-32.0); Mean Corpuscular Hgb Conc. 33.3 g/dL (32.0-36.0); Monocytes # (auto) 0.6 10 ^3/uL (0-1.3); Monocytes % (auto) 12.8 % (0.0-12.0); Neutrophils # (auto) 2.9 10 ^3/uL (1.6-8.6); Neutrophils % (auto) 57.6 % (37.0-80.0); Nucleated Red Blood Cells % 0.1 %; Platelet Count (auto) 171 10^3/uL (140-450); Red Blood Cells 4.81 10^6/uL (4.0-5.20); Red Cell Distribution Width 15.9 % (11.8-14.3)
[2019-11-18 06:19] LABS: Albumin 3.4 g/dL (3.4-5.0); BUN/Creatinine Ratio 6.5; Calcium 8.8 mg/dL (8.5-10.1)
[2019-11-18 06:22] LABS: Bilirubin, Total 0.4 mg/dL (0.2-1.0); Phosphorus 2.9 mg/dL (2.5-4.90); Total Protein 7.3 g/dL (6.4-8.2)
[2019-11-18] MEDS: BUDESONIDE (INHALATION) 0.5 MG/2 ML NEB NEB SCH ×2 (06:37→22:03)
--- NOTE | 2019-11-18 07:10 | NUR ---
OPENING SHIFT NOTES Assumed care of patient from maintenance technician 3rd shift RN. Patient is alert and oriented x1, she was reoriented to place time and situation. Sitter at bedside. Patient has echolalia, repeating the phrase "please help me." Patient is unable to answer questions. She was updated on the plan of care and was unable to verbalize understanding. Bed is locked, in the lowest position, side rails up x2 and call light is in reach. She was encouraged to call for assistance as needed.
--- NOTE | 2019-11-18 07:39 | NUR ---
HOSPITALIST PAGED for potassium results 3.0 after 40 meq K rider. New order received for 40 meq K rider, order read back and verified.
[2019-11-18] MEDS: D5W/SOD CHLO 0.9% 1,000 ML IV SCH (07:50)
[2019-11-18] MEDS: POTASSIUM CHL 20MEQ/100ML 100 ML IV SCH ×2 (08:19→11:16)
[2019-11-18 09:00] VITALS: BP 135/55
--- NOTE | 2019-11-18 09:39 | NUR ---
PAGED HOSPITALIST Patient appears anxious, repeating "help me", legs and arms are restless. Awaiting call back.
[2019-11-18] MEDS: PANTOPRAZOLE 40 MG/10 ML VIAL INJ IV SCH (09:55)
--- NOTE | 2019-11-18 09:55 | NUR ---
PATIENT REFUSING LOVENOX educated the patient on the medication, patient refused. Will try to administer again later
[2019-11-18] MEDS: ENOXAPARIN SOD 40 MG/0.4 ML SYRINGE SC SCH (10:00)
[2019-11-18] MEDS ORDERED: POTASSIUM CHL 20MEQ/100ML 100 ML IV ONE ×2 (10:15→12:30)
[2019-11-18] MEDS ORDERED: MEROPENEM 1GM IVPB 100 ML IV SCH (10:30)
--- NOTE | 2019-11-18 10:40 | NUR ---
CALL FROM SUKHI UPDATED ON THE PATIENT STATUS. NEW ORDER RECEIVED FOR ATIVAN 0.5MG IV Q12h PRN ANXIETY, ORDER READ BACK AND VERIFIED.
--- NOTE | 2019-11-18 11:29 | NUR ---
HOSPITALIST AT BEDSIDE Luke at bedside. Updated on the patient status. New order for clear liquid diet ordered, will call family for information on patient's baseline.
--- NOTE | 2019-11-18 12:16 | NUR ---
MESSAGE LEFT FOR SON regarding patient baseline, awaiting call back.
--- NOTE | 2019-11-18 12:18 | NUR ---
MESSAGE LEFT FOR CAREGIVER regarding patient baseline and history. Awaiting call back.
[2019-11-18 13:00] VITALS: BP 129/75
[2019-11-18] MEDS: cefTRIAXone 1GM/50ML D5W 50 ML IV SCH (13:33)
--- NOTE | 2019-11-18 15:05 | NUR ---
ELEAZAR AT BEDSIDE updated on the patient status, plan of care discussed with the patient but she was unable to verbalize understanding. No new orders received at this time.
[2019-11-18] MEDS ORDERED: SPIRONOLACTONE 25 MG TAB PO ONE (16:45)
--- NOTE | 2019-11-18 16:51 | NUR ---
MESSAGE LEFT FOR SON called for med, rec and patient's baseline neuro status. Awaiting call back.
[2019-11-18 17:00] VITALS: BP 146/84
--- NOTE | 2019-11-18 17:20 | NUR ---
MARIE AT BEDSIDE Updated on the patient status, plan of care was discussed with the patient. No new orders received.
--- NOTE | 2019-11-18 17:40 | NUR ---
PATIENT'S SON SHIRLEY CALLED Per patient's son, patient abuses pain medications and she continually is discharged from the hospital and abuses medication and ends up back in the hospital, states that the "caregiver finds her often passed out with the medications on her lap". He is unaware of the exact medications that she is on. He states that her baseline is "alert and oriented x4, patient can walk with a walker". He was updated on the plan of care and verbalized understanding. All questions answered. Addendum: 11/18/19 at 1824 by ERICA SCHUSTER RN per patient's son patient lives at [place] alone and has a caregiver Maisha. Will attempt to recall the caregiver for med rec.
--- NOTE | 2019-11-18 19:03 | NUR ---
URINE SENT TO LAB
--- NOTE | 2019-11-18 19:20 | NUR ---
OPENING SHIFT NOTE Assumed care of patient from Marion RN, Patient is alert to self currently on RA with no S/S of distress or SOB or pain noted at this time. Patient is bedrest with bed alarm on and Sitter bedside. POC discussed with patient and all questions answered. Bed in lowest position, locked, side rails up x2. Call light within reach. Will continue to monitor PRN.
[2019-11-18 19:40] LABS: Urine Bacteria FEW /hpf (None Seen); Urine Blood 1+ /uL (Negative); Urine Specific Gravity 1.014 (1.001-1.035); Urine WBC 1441 /hpf (0 - 5); Urine WBC Clumps PRESENT /hpf (None Seen)
[2019-11-18 21:03] VITALS: BP 126/72
[2019-11-19] MEDS: LORazepam 2MG/ML-1ML VIAL IV PRN ×2 (00:04→23:04)
[2019-11-19 05:05] VITALS: BP 136/82
--- NOTE | 2019-11-19 07:02 | NUR ---
CARE ENDORSED TO ERICA VALDES
--- NOTE | 2019-11-19 07:04 | NUR ---
OPENING SHIFT NOTE Assumed care of patient from reproductive endocrinologist RN. There is a sitter at bedside. Patient is alert and oriented x3, with periods of confusion. She was oriented to the situation and was updated on the plan of care and verbalized understanding. Bed is locked, in the lowest position, side rails are up x2 and call light is in reach. She was encouraged to call for assistance as needed.
[2019-11-19 08:31] VITALS: BP 124/66
[2019-11-19] MEDS: BUDESONIDE (INHALATION) 0.5 MG/2 ML NEB NEB SCH ×2 (10:25→22:00)
[2019-11-19] MEDS: cefTRIAXone 1GM/50ML D5W 50 ML IV SCH (10:29)
[2019-11-19] MEDS: PANTOPRAZOLE 40 MG/10 ML VIAL INJ IV SCH (10:30)
[2019-11-19] MEDS: ENOXAPARIN SOD 40 MG/0.4 ML SYRINGE SC SCH (10:33)
--- NOTE | 2019-11-19 11:30 | NUR ---
IV insertion IV access obtained, via clean sterile technique by inserting 22 gauge catheter at LEFT WRIST after 2 attempts. IV secured properly. No trauma to site. IV to the left AC and the right forearm removed. Catheters intact and pressure dressings applied. Patient tolerated well.
--- NOTE | 2019-11-19 11:34 | NUR ---
SUKHI AT BEDSIDE Updated on the patient status, Plan of care was discussed with the patient and she verbalized understanding. New orders for mechanical soft diet.
[2019-11-19 11:37] LABS: Calcium 8.4 mg/dL (8.5-10.1); Potassium 3.3 mmol/L (3.5-5.1)
[2019-11-19 11:39] LABS: BUN/Creatinine Ratio 9.4
--- NOTE | 2019-11-19 11:46 | NUR ---
EEG-ELECTROENCEPHALOGRAM COMPLETED AT BEDSIDE @ 10:20. RN AWARE.
--- NOTE | 2019-11-19 11:52 | NUR ---
PRIETO MADE AWARE OF POTASSIUM 3.3 New order for KCl 60mg PO. Order read back and verified.
[2019-11-19] MEDS ORDERED: POTASSIUM CHL 20 Meq TABLET PO ONE (12:00)
[2019-11-19 12:31] VITALS: BP 116/66
--- NOTE | 2019-11-19 12:43 | NUR ---
ELEAZAR AT BEDSIDE updated on the patient status. Per MD she is cleared from cardiology.
--- NOTE | 2019-11-19 16:13 | NUR ---
PATIENT MEDICATIONS AT BEDSIDE TAKEN TO PHARMACY. WILL UPDATE MED REC
--- NOTE | 2019-11-19 16:46 | NUR ---
Mlaloy catheter insertion Patient assessed and determined to be in need of Malloy catheter. Order obtained from MD. Patient educated on catheter and reason for insertion. All questions answered. Malloy catheter 16 gauge Romanian inserted with clean sterile technique. Patient tolerated well.
[2019-11-19 16:51] VITALS: BP 119/79
--- NOTE | 2019-11-19 17:03 | NUR ---
CALL FROM FAMILY Patient's son Fox called. After verification of password he was updated on the patient's condition and the plan of care. All questions answered.
--- NOTE | 2019-11-19 19:20 | NUR ---
OPENING SHIFT NOTE Assumed care of patient from Marion RN, Patient is alert and oriented and currently on RA with no S/S of distress or SOB or pain noted at this time. Patient is bedrest with bed alarm on and Sitter bedside. POC discussed with patient and all questions answered, patient verbalized understanding. Bed in lowest position, locked, side rails up x2. Call light within reach. Will continue to monitor PRN.
[2019-11-19 22:00] VITALS: BP 109/64
--- NOTE | 2019-11-19 22:17 | NUR ---
AT BEDSIDE FOR MED WHIT TX. PT REFUSING TO TAKE PULMICORT. PT EXPLAINED SHE HAS NEVER TAKEN THIS MEDICATION EVEN AT HOME AND DOES NOT UNDERSTAND WHY SHE IS ON IT AT HERE. EXPLAINED TO PT, PT STILL REFUSING TO TAKE. PT WOULD LIKE ME TO COMPLETELY STOP THIS ORDER UNTIL EXPLAINED BY MDS RECOMMENDATION. CUFF SETTER LOCKSTITCH AT BEDSIDE WILL NOTIFY RN OF PTS REFUSAL.
[2019-11-20 04:58] VITALS: BP 147/74
--- NOTE | 2019-11-20 07:02 | NUR ---
CARE ENDORSED TO ERICA VALDES
--- NOTE | 2019-11-20 07:02 | NUR ---
OPENING SHIFT NOTES Assumed care of patient from assistant shift supervisor RN. Sitter is at bedside. Patient is alert and oriented x4, no signs of distress noted. Patient was updated on the plan of care and verbalized understanding. Patient has a Malloy draining cloudy yellow urine to gravity, tubing free of loops and kinks. Bed is locked in the lowest position, side rails are up x2 and call light is in reach. She was encouraged to call for assistance as needed.
[2019-11-20 08:31] VITALS: BP 127/65
--- NOTE | 2019-11-20 09:12 | NUR ---
PT AT BEDSIDE Patient in chair at bedside, and assisted back to bed by PT.
[2019-11-20] MEDS: ENOXAPARIN SOD 40 MG/0.4 ML SYRINGE SC SCH (09:21)
[2019-11-20] MEDS: cefTRIAXone 1GM/50ML D5W 50 ML IV SCH (09:21)
[2019-11-20] MEDS: PANTOPRAZOLE 40 MG/10 ML VIAL INJ IV SCH (09:21)
--- NOTE | 2019-11-20 10:15 | NUR ---
FYI-patient was previously on service with [facility].
--- NOTE | 2019-11-20 11:50 | NUR ---
SUKHI AT BEDSIDE Updated on the patient status and the plan of care. Patient was updated on the plan of care and verbalized understanding. New orders for UA and Urine cultures.
[2019-11-20] MEDS: LORazepam 2MG/ML-1ML VIAL IV PRN ×2 (12:09→22:07)
--- NOTE | 2019-11-20 12:11 | NUR ---
HEP C ANTIBODIES POSITIVE SUKHI AWARE
--- NOTE | 2019-11-20 12:35 | NUR ---
URINE SENT TO LAB FOR UA AND CULTURE
--- NOTE | 2019-11-20 12:43 | NUR ---
UROLOGY AT BEDSIDE Barb at bedside. Per ROLLER TURNER patient would need to have cystoscopy as outpatient, patient is cleared for DC.
[2019-11-20 13:00] VITALS: BP 126/76
[2019-11-20 13:17] LABS: Urine Bacteria NONE SEEN /hpf (None Seen); Urine Blood 1+ /uL (Negative); Urine Specific Gravity 1.009 (1.001-1.035); Urine WBC 527 /hpf (0 - 5); Urine WBC Clumps PRESENT /hpf (None Seen)
--- NOTE | 2019-11-20 14:44 | NUR ---
CALL FROM FAMILY Patient's son Fox called. After verification of password he was updated on the patient status and the plan of care and verbalized understanding. All questions answered. Call was then transferred to the patient's room.
[2019-11-20] MEDS ORDERED: PARoxetine 20 MG TAB PO ONE (15:15)
[2019-11-20 16:46] VITALS: BP 132/74
[2019-11-20] MEDS: SUCRALFATE 1 GM/10 ML ORAL SUSP PO SCH ×2 (17:29→21:00)
[2019-11-20] MEDS: OLANZapine 5 MG TAB PO SCH (17:30)
--- NOTE | 2019-11-20 19:20 | NUR ---
OPENING SHIFT NOTE Assumed care of patient from Marion RN, Patient is alert and oriented and currently on RA with no S/S of distress or SOB or pain noted at this time. Patient is bedrest with bed alarm on. POC discussed with patient and all questions answered, patient verbalized understanding. Bed in lowest position, locked, side rails up x2. Call light within reach. Will continue to monitor PRN.
[2019-11-20] MEDS: traZODone HCL 50 MG TAB PO SCH (21:00)
[2019-11-20] MEDS: PANTOPRAZOLE 40 MG TAB PO SCH (21:00)
[2019-11-20 22:00] VITALS: BP 125/80
--- NOTE | 2019-11-20 22:15 | NUR ---
IV REMOVAL Iv site was infiltrated. IV DC'd with clean sterile technique, catheter fully intact. Pressure dressing applied to site. Patient tolerated well. Will obtain a new IV site.
--- NOTE | 2019-11-20 22:30 | NUR ---
IV INSERTION IV access obtained, via clean sterile technique by inserting 22 gauge catheter to the left hand after 1 attempt. IV secured properly. No trauma to site. Patient tolerated well. Saline locked.
[2019-11-21 05:00] VITALS: BP 108/70
[2019-11-21] MEDS: SUCRALFATE 1 GM/10 ML ORAL SUSP PO SCH ×4 (06:36→21:51)
--- NOTE | 2019-11-21 07:29 | NUR ---
CARE ENDORSED TO RAMILA VALDES
[2019-11-21] MEDS ORDERED: LORazepam 2MG/ML-1ML VIAL IV PRN (08:45)
[2019-11-21 08:48] VITALS: BP 129/77
--- NOTE | 2019-11-21 09:03 | NUR ---
PATIENT TAKEN TO MRI IV PATENT AND ASYMPTOMATIC, PATIENT MEDICATED WITH ATIVAN.
[2019-11-21] MEDS: OLANZapine 5 MG TAB PO SCH (11:47)
[2019-11-21] MEDS: ENOXAPARIN SOD 40 MG/0.4 ML SYRINGE SC SCH (11:48)
[2019-11-21] MEDS: cefTRIAXone 1GM/50ML D5W 50 ML IV SCH (11:48)
[2019-11-21] MEDS: PARoxetine 20 MG TAB PO SCH (11:49)
[2019-11-21] MEDS: PANTOPRAZOLE 40 MG TAB PO SCH ×2 (11:49→21:50)
--- NOTE | 2019-11-21 11:51 | NUR ---
IV INSERTION IV INSERTED AFTER ONE ATTEMPT 22G PATIENT TOLERATED WELL.
--- NOTE | 2019-11-21 12:00 | NUR ---
Pt refused PT tx today w/ c/o fatigue & nausea. Addendum: 11/21/19 at 1202 by Navin Reese TOWEL INSPECTOR Amended: Links added.
--- NOTE | 2019-11-21 12:42 | NUR ---
Nutrition Assessment Notes Please refer to link for full assessment notes. Est Energy needs: 8880-2565 kcals (20-23 kcal/kgBW) Est Protein needs: 66-73 gms/day (1.0-1.1 gm/kgBW) Will continue to monitor and reassess prn. Addendum: 11/21/19 at [address] Amended: Links added.
[2019-11-21 12:49] VITALS: BP 129/74
[2019-11-21] MEDS ORDERED: SIMETHICONE 40 MG/0.6 ML ORAL DROP PO PRN (13:30)
--- NOTE | 2019-11-21 13:50 | NUR ---
ALLERGY BAND PROVIDED FOR PATIENT AND APPLIED TO RIGHT WRIST
--- NOTE | 2019-11-21 14:18 | NUR ---
[facility] OF THE URINE COAL WASHER TENDER INFORMED OF PATIENTS MICRO LAB RESULT
--- NOTE | 2019-11-21 15:24 | NUR ---
MYLICON DROPS PROVIDED FROM PHARMACY. DOSE ORDERED PRESCRIBED GIVEN TO PATIENT AND PLACED IN PATIENT CASSET
[2019-11-21 16:34] VITALS: BP 140/83
--- NOTE | 2019-11-21 19:35 | NUR ---
Opening Shift Note Assumed care of patient, awake and alert. No S/S of distress/SOB or pain. Instructed on POC and to call for assist PRN, will continue to monitor for changes Q1hr and PRN. bed in low position and call light within reach. fall precautions in place
[2019-11-21] MEDS: traZODone HCL 50 MG TAB PO SCH (21:50)
[2019-11-21] MEDS: LORazepam 2MG/ML-1ML VIAL IV PRN (21:51)
[2019-11-21 22:00] VITALS: BP 111/62
--- NOTE | 2019-11-22 | NUR ---
[facility] OF THE URINE MEDICAL OFFICE ASSISTANT INSTRUCTOR INFORMED OF PATIENTS RESULTS
[2019-11-22] MEDS: SUCRALFATE 1 GM/10 ML ORAL SUSP PO SCH ×4 (06:29→23:07)
--- NOTE | 2019-11-22 07:20 | NUR ---
report given to dayshift rn patient is awake and alert.patient denies sob distress or pain.
--- NOTE | 2019-11-22 08:00 | NUR ---
Opening Shift Note Assumed care of patient, awake, alert and oriented X4. No S/S of distress/SOB or pain. Tele# 39, sinus rhythm @ 67 bpm. IV to left wrist, 22 gauge, patent and saline locked. Instructed on POC and to call for assist PRN, verbalized understanding. Bed locked, in lowest position, call light within reach, will continue to monitor for changes Q1hr and PRN.
[2019-11-22 08:40] VITALS: BP 126/79
[2019-11-22] MEDS: cefTRIAXone 1GM/50ML D5W 50 ML IV SCH (09:17)
[2019-11-22] MEDS: LORazepam 2MG/ML-1ML VIAL IV PRN (09:25)
[2019-11-22] MEDS: ENOXAPARIN SOD 40 MG/0.4 ML SYRINGE SC SCH (09:26)
[2019-11-22] MEDS: OLANZapine 5 MG TAB PO SCH (09:26)
[2019-11-22] MEDS: PANTOPRAZOLE 40 MG TAB PO SCH ×2 (09:26→23:07)
[2019-11-22] MEDS: PARoxetine 20 MG TAB PO SCH (09:26)
[2019-11-22 09:58] LABS: BUN/Creatinine Ratio 15.2; Calcium 8.5 mg/dL (8.5-10.1); Potassium 4.1 mmol/L (3.5-5.1)
--- NOTE | 2019-11-22 10:56 | NUR ---
ROUNDS Dr Butler at bedside for rounds, new orders received and followed through. Patient updated on plan of care, verbalized understanding.
--- NOTE | 2019-11-22 10:59 | NUR ---
Pt refused PT tx due to significant nausea. RN informed. Addendum: 11/22/19 at 1101 by Navin Reese OUTSOLE CASER Amended: Links added.
[2019-11-22] MEDS: ONDANSETRON HCL 4 MG/2 ML VIAL IV PRN (11:58)
[2019-11-22 13:00] VITALS: BP 128/69
--- NOTE | 2019-11-22 14:10 | NUR ---
Pt REFUSED 2ND ATTEMPT TO HAVE HER PARTICIPATE IN THERAPY DESPITE NAUSEA MEDICATION HAVING BEEN GIVEN TO HER BY HER RN 30 MINUTES PRIOR. Addendum: 11/22/19 at 1414 by Navin Reese FORECLOSURE HOME INSPECTOR Amended: Links added.
[2019-11-22] MEDS ORDERED: LINEZOLID 600MG TABLET PO ONE (15:45)
[2019-11-22] MEDS ORDERED: VANCOMYCIN PER PHARMACY 0 MG IV SCH (16:00)
--- NOTE | 2019-11-22 16:03 | NUR ---
assessment re: ss consult dc planning Patient is a 69 year old female who is alert and oriented. Patients cognitive abilities are intact. Prior to admission patient lived home alone and functioned with assistance of her daily caregiver. Per patient she will return home to her prior living arrangements post discharge and family will transport her home. Patient has a fww, wheelchair, bedside commode and a shower chair for home use. Patients PCP is Dr Mary Lopez. Patient informed me she has a daily caregiver for 3 hours per day Maisha Friedman. Patient has [facility]. Patient wants to resume with [facility]. Patient will need a resumption order for home health on discharge. Patient has been offered SNF. Patient refuses SNF and prefers to return home on discharge. Patient informed me she has no safety issues regarding returning home on discharge. I informed patient she has a right to speak to a social work case manager regarding all care. I informed patient she has a right to participate in any and all discharge planning. Patient does not have a POA and advanced directive. I have offered patient information on POA and advanced directives. I informed the patient the advantages and benefits of having an Advanced Directive. Patient verbalized understanding and agreed to discharge plan. Addendum: 11/22/19 at 1605 by Charlotte MANSFIELD Amended: Links added.
[2019-11-22 16:51] VITALS: BP 125/77
--- NOTE | 2019-11-22 18:15 | NUR ---
IV removal IV DC'd to the left wrist due to swelling and tenderness, with sterile technique, catheter fully intact. Pressure dressing applied to site. Patient tolerated procedure well. IV insertion IV access obtained, via clean sterile technique by inserting 20 gauge catheter at right forearm after 2 attempt(s). IV secured properly. No trauma to site. Patient tolerated procedure well.
[2019-11-22] MEDS: VANCOMYCIN 1GM/250ML 250 ML IV SCH (18:20)
--- NOTE | 2019-11-22 18:20 | NUR ---
Malloy catheter dc'd Order to discontinue Malloy catheter. Malloy dc'd with clean technique following deflation of balloon. Patient tolerated well with no complaints of pain. Continue care.
--- NOTE | 2019-11-22 19:11 | NUR ---
Care endorsed to Miley VALDES, night nurse.
--- NOTE | 2019-11-22 20:00 | NUR ---
HOSPITALIST PAGED PATIENT REQUESTING ATIVAN, STATING "ITS THE ONLY THING THAT WILL HELP ME SLEEP". WILL AWAIT CALL BACK.
[2019-11-22 22:00] VITALS: BP 119/70
[2019-11-22] MEDS ORDERED: LINEZOLID 600MG TABLET PO SCH (22:00)
--- NOTE | 2019-11-22 22:00 | NUR ---
HOSPITALIST PAGED PATIENT CONTINUES TO REQUEST ATIVAN FOR SLEEP. WILL AWAIT CALLBACK.
[2019-11-22] MEDS: traZODone HCL 50 MG TAB PO SCH (23:07)
--- NOTE | 2019-11-23 04:14 | NUR ---
PATIENT TRANSFERRED TO ROOM 220A. ALL BELONGINGS MOVED WITH PATIENT. Addendum: 11/23/19 at 0417 by Miley Kat RN PATIENT TRANSFERRED TO ROOM 222A, ALL BELONGINGS WITH PATIENT.
[2019-11-23 05:00] VITALS: BP 137/70
[2019-11-23] MEDS: SUCRALFATE 1 GM/10 ML ORAL SUSP PO SCH ×4 (06:56→21:36)
--- NOTE | 2019-11-23 08:00 | NUR ---
Opening Shift Note Assumed care of patient, awake, alert and oriented X4. No S/S of distress/SOB or pain. Tele# 39, sinus rhythm @ 90 bpm. IV to left forearm, 20 gauge, patent and saline locked. Instructed on POC and to call for assist PRN, verbalized understanding. Bed locked, in lowest position, call light within reach, will continue to monitor for changes Q1hr and PRN.
[2019-11-23 09:00] VITALS: BP 130/77
[2019-11-23] MEDS: ONDANSETRON HCL 4 MG/2 ML VIAL IV PRN ×2 (09:40→19:44)
[2019-11-23] MEDS: PARoxetine 20 MG TAB PO SCH (10:37)
[2019-11-23] MEDS: PANTOPRAZOLE 40 MG TAB PO SCH ×2 (10:37→21:36)
[2019-11-23] MEDS: OLANZapine 5 MG TAB PO SCH (10:37)
[2019-11-23] MEDS: ENOXAPARIN SOD 40 MG/0.4 ML SYRINGE SC SCH (10:38)
--- NOTE | 2019-11-23 10:51 | NUR ---
ROUNDS Dr Butler at bedside for rounds, new orders received and followed through. Patient updated on bray of care, verbalized understanding.
[2019-11-23] MEDS: LORazepam 2MG/ML-1ML VIAL IV SCH ×2 (11:22→23:00)
[2019-11-23 13:00] VITALS: BP 140/71
--- NOTE | 2019-11-23 15:00 | NUR ---
INFECTIOUS DISEASE CONSULT Dr Avery at bedside for Infectious Disease follow up, new orders received and followed through. Patient updated on plan of care, verbalized understanding.
[2019-11-23] MEDS: VANCOMYCIN 1GM/250ML 250 ML IV SCH (16:34)
[2019-11-23 17:00] VITALS: BP 127/87
--- NOTE | 2019-11-23 18:57 | NUR ---
Care endorsed to KEISHA Dozier, night nurse.
[2019-11-23] MEDS: traZODone HCL 50 MG TAB PO SCH (21:36)
[2019-11-24] MEDS: SUCRALFATE 1 GM/10 ML ORAL SUSP PO SCH ×4 (06:08→21:33)
[2019-11-24 06:18] VITALS: BP 126/71
[2019-11-24 09:00] VITALS: BP_SYST 126; BP_SYST 132; BP_DIAS 74; BP_DIAS 79
[2019-11-24] MEDS: ENOXAPARIN SOD 40 MG/0.4 ML SYRINGE SC SCH (09:25)
[2019-11-24] MEDS: OLANZapine 5 MG TAB PO SCH (09:26)
[2019-11-24] MEDS: PARoxetine 20 MG TAB PO SCH (09:26)
[2019-11-24] MEDS: PANTOPRAZOLE 40 MG TAB PO SCH ×2 (09:26→21:33)
[2019-11-24] MEDS ORDERED: METOCLOPRAMIDE HCL 10 MG TAB PO SCH (10:00)
[2019-11-24] MEDS: LORazepam 2MG/ML-1ML VIAL IV SCH ×2 (11:11→22:53)
[2019-11-24] MEDS: ONDANSETRON HCL 4 MG/2 ML VIAL IV PRN ×2 (11:18→22:55)
--- NOTE | 2019-11-24 12:27 | NUR ---
Nutrition Followup Notes Pt wt is 66.0 kg Pt was awake when rounded this morning. Pt is with a Mechanical Soft diet, appetite is good aeb 75% x4 PO intake per RN doc. Pt noted she is feeling fine, no distress or complaints. Est Energy needs: 6082-4583 kcals (20-23 kcal/kgBW) Est Protein needs: 66-73 gms/day (1.0-1.1 gm/kgBW) Will continue to monitor and reassess prn. LABS: GLUC 150 H GI: Pt had 2 BM on 11/22 per RN doc BS: 18 mod risk. Refer to wound assessment report for full details. PES: 1) Inadequate oral intake r/t pt with lowered appetite aeb pt not feeling well, ave 50% PO intake over 6 meals 2) Altered nutrition related lab values r/t current medical condition aeb hypokalemia, hypocalcemia Comments Will continue to monitor PO status, skin status, pertinent labs and weight trends. Will f/u in 3-5 days. 1) Continue to carefully monitor pt PO intake to meet at least 75% of meals 2) Continue current plan of care
[2019-11-24] MEDS ORDERED: SULFAMETHOX W/TRIMETH(800/160MG) DS TAB PO ONE (14:45)
[2019-11-24] MEDS ORDERED: AMOXICILLIN/CLAVUL 875 MG TAB PO ONE (14:45)
--- NOTE | 2019-11-24 15:35 | NUR ---
Prescription Prescription for Protonix called in to [facility] and [address] [phone]. Zofran will be filled at [facility], no refills.
[2019-11-24 16:18] VITALS: BP 126/74
--- NOTE | 2019-11-24 16:45 | NUR ---
Phone call to caregiver Attempted to call patient's caregiver Maisha [phone] to pickle processor patient, phone call went unanswered. Will keep on trying.
--- NOTE | 2019-11-24 16:53 | NUR ---
re-assessment Patient is being discharge from [facility] to home on 11/24/2019 and to resume services at [facility]. Per Yasemin, inpatient coordinator at [facility], the patient will be re-admitted for resuming services at [facility] within 24 to 48 hours of discharge. Patient bedside nurse was notified about services resuming on discharge. Addendum: 11/24/19 at 1655 by Charlotte MANSFIELD Amended: Links added.
--- NOTE | 2019-11-24 18:04 | NUR ---
Phone call to caregiver regarding Discharge Multiple attempts to call patient's caregiver Maisha [phone] went unanswered. Son [place]. Charge nurse was informed.
--- NOTE | 2019-11-24 19:40 | NUR ---
spoke with caregiver tawana [phone]. per tawana She will be here to turkey picker patient in 30min.
--- NOTE | 2019-11-24 19:47 | NUR ---
Opening Shift Note Assumed care of patient, awake and alert. No S/S of distress/SOB or pain. Instructed on POC and to call for assist PRN, will continue to monitor for changes Q1hr and PRN. No IV present. fall precautions in place
--- NOTE | 2019-11-24 20:57 | NUR ---
Per tawana caregiver she will not be able to fruit picker machine operator patent until tomorrow at 0900 am. per tawana " my does not let me" notified tank charger alex. tia notified house admin.
--- NOTE | 2019-11-24 21:07 | NUR ---
notified [facility] of current situation and patient caregiver can not picker / packer patient. per Kena hospitalist okay to hold discharge.
--- NOTE | 2019-11-24 21:07 | NUR ---
IV insertion IV access obtained, via clean sterile technique by inserting 22 gauge catheter at rught wrist after 1 attempt. IV secured properly. No trauma to site. Patient tolerated well. Telemonitor reapplied.
[2019-11-24] MEDS: traZODone HCL 50 MG TAB PO SCH (21:33)
[2019-11-24 22:00] VITALS: BP 135/80
[2019-11-25 05:00] VITALS: BP 137/76
[2019-11-25] MEDS: SUCRALFATE 1 GM/10 ML ORAL SUSP PO SCH (06:15)
--- NOTE | 2019-11-25 07:10 | NUR ---
ENDORSED CARE TO DAYSHIFT RN. INFORMED RN PEYTON OF PATIENT DISCHARGE AND TO REEDUCATE PATIENT ON DISCHARGE PAPERWORK. INFORMED RN ABOUT PATIENT PRESCRIPTION MEDICATION AND HOME MEDICATIONS. PATIENT DENIES SOB DISTRESS OR PAIN.
--- NOTE | 2019-11-25 07:30 | NUR ---
Opening Shift Note Assumed care of patient, awake and alert. No S/S of distress/SOB or pain. Instructed on POC and to call for assist PRN, will continue to monitor for changes Q1hr and PRN. Fall precautions in place per safety protocol.
[2019-11-25 09:00] VITALS: BP 134/80
[2019-11-25] MEDS: ONDANSETRON HCL 4 MG/2 ML VIAL IV PRN (09:08)
--- NOTE | 2019-11-25 09:36 | NUR ---
Discharge instructions given as ordered. Encourage to follow up with PMD as instructed. All questions and concerns addressed. Patient verbalized understanding. Medication reconciliation form completed and copy given to patient. Home medications held in Pharmacy returned to patient. IV removed with catheter intact, pressure dressing applied. Telemetry unit returned to ICU. Patient taken to vehicle via wheelchair with all personal belongings, accompanied by staff. No distress noted at time of departure.
== END 2019-11-25 09:36 | disposition home health service (06) | DRG 689 ==
LOC: ER 15:29 → EDBD 15:29 → TELE-WESTW 15:30 → TELE-CENTR 23:47
PROVIDERS: ADMIT Family Medicine; ATTEND Internal Medicine Nephrology
DX: N39.0 Urinary tract infection, site not specified (principal); G93.41 Metabolic encephalopathy; E87.0 Hyperosmolality and hypernatremia; R00.1 Bradycardia, unspecified; E87.6 Hypokalemia; E86.0 Dehydration; I10 Essential (primary) hypertension; E78.5 Hyperlipidemia, unspecified; F41.9 Anxiety disorder, unspecified; F31.9 Bipolar disorder, unspecified; B18.2 Chronic viral hepatitis C; K29.70 Gastritis, unspecified, without bleeding; K83.8 Other specified diseases of biliary tract; K86.89 Other specified diseases of pancreas; L89.152 Pressure ulcer of sacral region, stage 2; B95.62 Methicillin resistant Staphylococcus aureus infection as the cause of diseases classified elsewhere; F11.10 Opioid abuse, uncomplicated; F17.200 Nicotine dependence, unspecified, uncomplicated; J44.9 Chronic obstructive pulmonary disease, unspecified; K21.9 Gastro-esophageal reflux disease without esophagitis; Z81.8 Family history of other mental and behavioral disorders; Z85.828 Personal history of other malignant neoplasm of skin; Z87.440 Personal history of urinary (tract) infections; Z90.49 Acquired absence of other specified parts of digestive tract; Z88.1 Allergy status to other antibiotic agents; B95.2 Enterococcus as the cause of diseases classified elsewhere; E03.9 Hypothyroidism, unspecified
CPT/HCPCS: 36415; 70450; 71045; 74176; 74183; 80048; 80053; 81001; 82565; 82962; 83605; 83735; 84100; 84484; 85025; 85610; 85730; 86803; 87040; 87086; 87088; 87186; 93005; 94640; 95819; 96360; 97110; 97116; 97530; C9113; G0378; J0696; J2405; J3480